=== PATIENT | male | born 1965 | race Caucasian/White ===

== ENCOUNTER → 2016-12-06 | Day surgery (SDC) | payer MEDICARE ==
[~2016-12-06] MED LIST: AMITIZA24 MCG PO; AMITIZA8 MCG PO; AUGMENTIN PO; BACITRACIN15 GM OINT EXT; BACTRIM DS TABL1 TA1 PO; BACTRIM DS TABL1 TA2 PO; BACTROBAN22 GM TP; CLINDAMYCIN HC300 MG PO; CLOTRIMAZOLE15 GM TP; DESYREL100 MG PO; DOXYCYCLINE HY100 M1 PO; IBUPROFEN800 MG PO; KEFLEX PO; KEFLEX500 M1 PO; KLONOPIN; KLONOPIN2 MG; KLONOPIN2 MG PO; LEVAQUIN750 M1 PO; LEVAQUIN750 MG PO; METFORMIN PO; METHADONE HCL10 MG; METHADONE HCL10 MG PO; METHADONE PO; METHADOSE10 M1 PO; METHADOSE10 MG; METHADOSE10 MG PO; NEURONTIN PO; NICOTINE TRANSD14 MG EXT; SEROQUEL; SEROQUEL PO; THERAPEUTIC FOR1 TA1 PO; UREA142 G1 TOP; VITAL-D RX TABL1 TAB PO; WELLBUTRIN SR PO; ZOLOFT PO; ZOLOFT100 MG; ZOLOFT100 MG PO
--- NOTE | ~2016-12-06 | OR ---
Unit #: [id number] #: [id number] Patient: ARMANDO FONTAINE [id number] [address] [place], [place] [address] [id number] MR#: [id number] NAME: ARMANDO FONTAINE. ROOM: Date of Procedure: 12/06/2016 Admission Date: 12/06/2016 Surgeon: Too Gillespie Jr., M.D. : 1965 Attending Physician: Too Gillespie Jr., M.D. Primary Care Physician: [facility] OPERATIVE REPORT INDICATIONS FOR PROCEDURE The patient is a 51-year-old white male, who recently had a screening tests namely a FIT test, which was positive for blood in the stool. It was felt he needed a colonoscopy. He is brought in this time after prep at home for colonoscopy. He understands the procedure including the risks, including that of perforation and bleeding, and consents. PREOPERATIVE DIAGNOSIS Possible occult malignancy with gastrointestinal bleeding. POSTOPERATIVE DIAGNOSIS Normal colonoscopy to the distal ileum. ANESTHESIA MAC anesthesia. PROCEDURE PERFORMED Flexible colonoscopy to the distal ileum. DESCRIPTION OF PROCEDURE The patient was positioned in Rivera position with left side down. After being given MAC anesthesia, digital rectal examination was performed, which revealed no palpable mass or tenderness. No blood or stool in the rectal ampulla. Prostate was normal by palpation. The Olympus colonoscope was advanced up in the anal canal, up in the rectum, and retroflexed down to the area of the anorectal region. There was no evidence of any fissures and no significant internal hemorrhoids. The scope was then straightened and advanced up in the rectosigmoid, in the sigmoid and descending colon areas, around the splenic flexure and the transverse colon, around the hepatic flexure and ascending colon, down in the area of the cecum. The light from the tip of the scope could be seen transilluminating through right lower quadrant abdominal wall area. The scope was advanced up the distal ileum approximately 10 to 12 inches. There was no evidence of any ileitis or inflammatory bowel disease. The scope was slowly removed. There were no tumors, no polyps, cancer, or AVMs. No evidence of any colitis, diverticulosis, or diverticulitis. The caliber of the colon appeared normal throughout. The scope was removed. The patient tolerated the procedure well and was discharged in satisfactory condition. Dictated by... Unit #: [id number] #: [id number] Patient: ARMANDO FONTAINE Jr., M.D. JMB/dane TD: 12/07/2016 02:40 JOB #: [id number] OPERATIVE REPORT Page 1 of 1 X Too Gillespie MD X PROCEDURE OPERATIVE NOTE
== END | disposition home or self-care (01) ==
LOC: COPS 12:08
DX: K92.1 Melena (principal); K59.09 Other constipation; E11.9 Type 2 diabetes mellitus without complications; D64.9 Anemia, unspecified; K21.9 Gastro-esophageal reflux disease without esophagitis; G62.89 Other specified polyneuropathies; G89.29 Other chronic pain; G47.30 Sleep apnea, unspecified; F41.9 Anxiety disorder, unspecified; F32.9 Major depressive disorder, single episode, unspecified; Z82.49 Family history of ischemic heart disease and other diseases of the circulatory system; Z79.899 Other long term (current) drug therapy; Z98.890 Other specified postprocedural states; Z79.84 Long term (current) use of oral hypoglycemic drugs
CPT/HCPCS: 82947; J2250